=== PATIENT | male | born 1950 | race Caucasian/White ===

== ENCOUNTER 2020-11-19 17:10 | Inpatient (IN) | payer BC ==
[~2020-11-19] VITALS: Ht 175.3 cm; Wt 86.2 kg
--- NOTE | 2020-11-19 17:10 | NUR ---
PT BIB SELF C/O SOBAND COUGHT +COVID 10 DAYS AGO. PT IS AAOX4, NOT IN RESPIRATORY DISTRESS, HOOKED TO MECHANICAL MAINTENANCE FOREMAN, KEPT RESTED AND COMFORTABLE. WILL CONTINUE TO MONITOR.
--- NOTE | 2020-11-19 17:24 | NUR ---
SEEN AND EXAMINED BY .
[2020-11-19] MEDS ORDERED: DEXAMETHASONE SOD PHOSPHATE 10 MG/ML VIAL ONE (17:27)
--- NOTE | 2020-11-19 17:28 | NUR ---
PHOTO TUBE ASSEMBLER AT BEDSIDE FOR XRAY.
[2020-11-19] MEDS ORDERED: DEXAMETHASONE SOD PHOSPHATE 10 MG/ML VIAL IV ONE (17:30)
[2020-11-19] MEDS ORDERED: ALBUTEROL FS 2.5 MG/3 ML VIAL.NEB CONTNEB ONE (17:30)
--- NOTE | 2020-11-19 17:35 | NUR ---
IV LINE ESTABLISHED BLOOD DRAWN AND SENT TO LAB.
--- NOTE | 2020-11-19 17:42 | NUR ---
RT AT BEDSIDE FOR BREATHING TX.
[2020-11-19] MEDS ORDERED: ALBUTEROL FS 2.5 MG/3 ML VIAL.NEB ONE ×2 (17:45→18:00)
[2020-11-19 17:57] LABS: BASOPHILS % (AUTO) 0.5 % (0.0-2.0); EOSINOPHILS % (AUTO) 0.2 % (0.0-6.0); HEMATOCRIT 45 % (39-51); LYMPHOCYTES # (AUTO) 0.6 /CMM (0.8-4.8); LYMPHOCYTES % (AUTO) 18.7 % (20.0-44.0); MEAN CORPUSCULAR HGB CONC 34 g/dl (31.0-36.0); MEAN CORPUSCULAR VOLUME 86 fL (80-96); MONOCYTES # (AUTO) 0.2 /CMM (0.1-1.30); MONOCYTES % (AUTO) 6.7 % (2.0-12.0); NEUTROPHILS # (AUTO) 2.2 /CMM (1.8-8.9); NEUTROPHILS % (AUTO) 73.9 % (43.0-81.0); RED BLOOD CELL COUNT(AUTO) 5.18 MIL/uL (4.5-6.0)
[2020-11-19] MEDS ORDERED: ACET325T53 PO (18:10)
[2020-11-19 18:18] LABS: CALCIUM, SERUM 8.3 mg/dL (8.5-10.1); CARBON DIOXIDE 25 mmol/L (21-32); CHLORIDE 102 mmol/L (98-107); CREATININE 1.3 mg/dL (0.6-1.3); GLUCOSE 131 mg/dL (74-106); SODIUM SERUM 137 mmol/L (136-145); UREA NITROGEN, BLOOD 18 mg/dL (7-18)
[2020-11-19 19:27] LABS: BAND % (MANUAL) 20 % (0.0-5.0); LYMPHOCYTES % (MANUAL) 15 % (16-48); MONOCYTES % (MANUAL) 5 % (0-11.0); NEUTROPHILS % (MANUAL) 60 (42-76)
--- NOTE | 2020-11-19 19:54 | NUR ---
DR. BUCHANAN SPEAKING WITH DR. ZAINA BANUELOS REGARDING ADMISSION
[2020-11-19 21:15] LABS: ALANINE AMINOTRANSFERASE < 6 U/L (12-78); ALBUMIN 3.1 g/dL (3.4-5.0); ALKALINE PHOSPHATASE 63 U/L (46-116); ASPARTATE AMINOTRANSFERASE 58 U/L (15-37); BILIRUBIN,TOTAL 0.5 mg/dL (0.2-1.0); FERRITIN 574 ng/mL (8-388); TOTAL PROTEIN, SERUM 7.6 g/dL (6.4-8.2)
[2020-11-19] MEDS ORDERED: ZOLPIDEM TARTRATE 5 MG TABLET PO PRN (22:00)
[2020-11-19] MEDS ORDERED: ONDANSETRON HCL/PF 4 MG/2 ML VIAL IVP PRN (22:00)
[2020-11-19] MEDS ORDERED: ENOXAPARIN SODIUM 40 MG/0.4 ML DISP.SYRIN SQ SCH ×2 (22:00→23:30)
[2020-11-19] MEDS ORDERED: HYDROCODONE/APAP 5/325MG TABLET PO PRN (22:00)
[2020-11-19] MEDS ORDERED: ALBUTEROL SULFATE INH 18 GM HFA.AER.AD IH PRN (22:00)
[2020-11-19] MEDS ORDERED: ACETAMINOPHEN 325 MG TABLET PO PRN (22:00)
[2020-11-19 22:21] LABS: B-TYPE NATRIURETIC PEPTIDE < 5 PG/ML (0-125)
[2020-11-19 22:25] LABS: C-REACTIVE PROTEIN 13.6 mg/dL (0.0-0.9); CREATINE KINASE, TOTAL 57 U/L (39-308)
[2020-11-19 22:54] LABS: PLATELET COUNT (AUTO) 63 /CMM (150-450)
--- NOTE | 2020-11-19 23:14 | NUR ---
on-call pharmacy called to clarify lovenox order, not recommended for platelets <100, platelets 63. Dr. You made aware. per Dr. you, D/c lovenox
[2020-11-20] MEDS ORDERED: AZITHROMYCIN 500 MG VIAL ONE (00:06)
[2020-11-20] MEDS: AZITHROMYCIN 500 MG in IV D5W 250 ML IV SCH ×2 (00:09→21:55)
--- NOTE | 2020-11-20 00:17 | NUR ---
BED ASSIGNMENT 209-1
--- NOTE | 2020-11-20 01:20 | NUR ---
REPORT GIVEN TO MARIA DEL CARMEN DAVIS FOR SETH PT WILL BE TRANSPORTED TO 2ND FLOOR
[2020-11-20 03:00] VITALS: BP 121/75
--- NOTE | 2020-11-20 03:00 | NUR ---
in store marketing associateherb digger notes Received Pt from ER nurse Manuel, RN and EMT. Pt arrived at the unit with a gurney and ACLS protocol. Pt is alert and orientedX4. Pt speaks Romanian and able to make needs known. Respiration is on 2 L NC. No SOB. No S/S of distress noted. VS is stable. afebrile. Tele monitor showed SR Hr at 73 bpm. IV site at RAC# 18 is clean, intact and infusing well abx azithromycin from ER. Pt is able to ambulate with a steady gait. Skin assessment is done and performed. Pt's skin is intact. Pt's belonging was checked by KEVIN Chris and signed by Pt. Admission orders is received from Dr. Mccartney. Reorient Pt to the room and the use of call light. Pt verbalize understanding. Safety precautions is maintained. Bed at low position, brakes locked, side rails upX2 and call light is within reach. Will continue to monitor.
--- NOTE | 2020-11-20 03:25 | NUR ---
anime artist notes Informed Dr. Mccartney regarding Pt's diet. MD order cardiac diet. Order carried out.
[2020-11-20 04:00] VITALS: BP 115/71
--- NOTE | 2020-11-20 06:22 | NUR ---
heel brusher notes Pt's complaining of cough. MD order Robitussin DM 10 ml/Q6/prn. Order carried out.
[2020-11-20] MEDS: GUAIFENESIN/D-METHORPHAN HB 5 ML UDC PO PRN ×2 (06:30→14:10)
--- NOTE | 2020-11-20 06:30 | NUR ---
grain operations manager notes Pt's complaining of cough and requesting cough meds. Administered robitussin DM 10ml/po/prn as ordered for cough per Pt's request. Safety precautions is maintained. Will continue to monitor.
--- NOTE | 2020-11-20 06:50 | NUR ---
wing mailer machine operator closing notes Pt is resting in bed comfortably. Pt is alert and orientedX4. Respiration is on 2 L NC with 02 sat is 94%. No SOB. No S/S of distress noted. IV site at RAC# 18 is clean, intact, flushes well and SL. Tele monitor showed SR with BBB hr 81 bpm. Vs is stable. Afebrile. Kept Pt clean, dry and comfortable. All needs met and attended. Safety precautions is maintained. Bed at low position, brakes locked, hob elevated, urinal at the bedside, side rails upX2 and call light is within reach. Will endorse to morning nurse for SETH.
[2020-11-20 07:31] LABS: BASOPHILS % (AUTO) 0.3 % (0.0-2.0); HEMATOCRIT 45 % (39-51); HEMOGLOBIN 14.7 g/dL (13.5-17.5); LYMPHOCYTES # (AUTO) 0.2 /CMM (0.8-4.8); LYMPHOCYTES % (AUTO) 14.1 % (20.0-44.0); MEAN CORPUSCULAR HGB CONC 33 g/dl (31.0-36.0); MEAN CORPUSCULAR VOLUME 86 fL (80-96); MONOCYTES # (AUTO) 0.1 /CMM (0.1-1.30); MONOCYTES % (AUTO) 7.2 % (2.0-12.0); NEUTROPHILS # (AUTO) 1.4 /CMM (1.8-8.9); NEUTROPHILS % (AUTO) 78.4 % (43.0-81.0); PLATELET COUNT (AUTO) 64 /CMM (150-450); RED BLOOD CELL COUNT(AUTO) 5.17 MIL/uL (4.5-6.0)
--- NOTE | 2020-11-20 07:40 | NUR ---
TELE/RN OPENING NOTES RECEIVED PATIENT ON BED. PATIENT IS ON 2 L OXYGEN VIA NASAL CANNULA. PATIENT IN NO APPARENT RESPIRATORY DISTRESS NOTED. NO SIGN AND SYMPTOM OF PAIN NOTED AT THIS TIME. TELE MONITOR READING SINUS RHYTHM 76 BPM WITH BBB. WILL CONTINUE TO MONITOR.
[2020-11-20 07:52] LABS: CHOLESTEROL 189 mg/dL (<200); HDL CHOLESTEROL 25 mg/dL (40-60); LDL 140 mg/dL (0-99); TRIGLYCERIDES 118 mg/dL (30-150)
[2020-11-20] MEDS: PANTOPRAZOLE 40 MG TABLET.DR PO SCH (07:52)
[2020-11-20 07:53] LABS: ALANINE AMINOTRANSFERASE 53 U/L (12-78); ALBUMIN 2.8 g/dL (3.4-5.0); ALKALINE PHOSPHATASE 59 U/L (46-116); ASPARTATE AMINOTRANSFERASE 56 U/L (15-37); BILIRUBIN,TOTAL 0.5 mg/dL (0.2-1.0); CALCIUM, SERUM 8.5 mg/dL (8.5-10.1); CARBON DIOXIDE 22 mmol/L (21-32); CHLORIDE 102 mmol/L (98-107); CREATININE 1.2 mg/dL (0.6-1.3); GLUCOSE 186 mg/dL (74-106); MAGNESIUM 2.1 mg/dL (1.8-2.4); PHOSPHORUS 2.4 mg/dL (2.5-4.9); POTASSIUM 4.5 mmol/L (3.5-5.1); SODIUM SERUM 135 mmol/L (136-145); TOTAL PROTEIN, SERUM 7.2 g/dL (6.4-8.2); UREA NITROGEN, BLOOD 19 mg/dL (7-18)
[2020-11-20 07:56] LABS: WHITE BLOOD COUNT (AUTO) 1.7 K/uL (4.3-11.0)
--- NOTE | 2020-11-20 08:00 | NUR ---
TELE/RN NOTES PATIENT SATURATION 78-83. PLACE TO 6 L OXYGEN VIA NASAL CANNULA SATURATION 80-83. CHANGE TO FACE MASK 10L OXYGEN SATURATION 80-81. CHANGE TO 15L OXYGEN VIA NON REBREATHER MASK SATURATION 90-94. PATIENT IN APPARENT RESPIRATORY DISTRESS NOTED. MD IS AWARE. WILL CONTINUE TO MONITOR.
[2020-11-20] MEDS ORDERED: NEUTRA PHOS 1 POWD.PACKET PO ONE (09:00)
[2020-11-20] MEDS: DEXAMETHASONE SOD PHOSPHATE 10 MG/ML VIAL IV SCH (09:09)
[2020-11-20] MEDS: DOCUSATE SODIUM 100 MG CAPSULE PO SCH ×2 (09:10→17:28)
[2020-11-20 12:12] LABS: BAND % (MANUAL) 1 % (0.0-5.0); LYMPHOCYTES % (MANUAL) 10 % (16-48); MONOCYTES % (MANUAL) 7 % (0-11.0); NEUTROPHILS % (MANUAL) 82 (42-76)
[2020-11-20 19:31] VITALS: BP 142/82
--- NOTE | 2020-11-20 19:33 | NUR ---
TELE/RN CLOSING NOTES PATIENT IS ON BED. ALERT AND ORIENTED X4. PATIENT IS ON HIGH FLOW 60L OXYGEN FIO2 75% SATURATION 94%. PATIENT IN NO APPARENT RESPIRATORY DISTRESS. NO COMPLAINED OF PAIN NOTED AT THIS TIME. TELE MONITOR READING SINUS RHYTHM 73 BPM WITH BBB. SEEN AND EXAMINED BY MD WITH ORDERS MADE AND CARRIED OUT. ALL DUE MEDICATIONS WAS GIVE. SAFETY PRECAUTIONS WAS IN PLACED. BED IN LOWEST POSITION AND LOCKED. SIDE RAILS UP X2. CALL LIGHT WITHIN REACH. WILL ENDORSED TO GREENSTONE POLISHER OPERATOR FOR SETH.
--- NOTE | 2020-11-20 19:35 | NUR ---
TELE/RN OPENING NOTES RECEIVED PATIENT IN BED RESTING. PATIENT IS ALERT AND ORIENTED X 3. PATIENT BREATHING IS EVEN AND UNLABORED. NO SIGNS OF RESPIRATORY DISTRESS NOTED. PATIENT IN NO SIGNS OF DISTRESS. PATIENT HAS IV ACCESS ON RIGHT AC #18G SL. SAFETY MEASURES ARE IN PLACED, BED IS LOCKED AND PLACED IN THE LOWEST POSITION, SIDE RAILS UP X 2, CALL LIGHT WITHIN REACH. WILL CONTINUE TO MONITOR THROUGH OUT SHIFT.
[2020-11-20 20:00] VITALS: BP 131/81
[2020-11-20] MEDS: ATORVASTATIN 10 MG TABLET PO SCH (21:55)
[2020-11-21] VITALS: BP 133/87
[2020-11-21 04:00] VITALS: BP 123/78
[2020-11-21 06:23] LABS: BASOPHILS % (AUTO) 0.1 % (0.0-2.0); HEMATOCRIT 43 % (39-51); HEMOGLOBIN 14.2 g/dL (13.5-17.5); LYMPHOCYTES # (AUTO) 0.4 /CMM (0.8-4.8); LYMPHOCYTES % (AUTO) 5.6 % (20.0-44.0); MEAN CORPUSCULAR HGB CONC 33 g/dl (31.0-36.0); MEAN CORPUSCULAR VOLUME 86 fL (80-96); MONOCYTES # (AUTO) 0.5 /CMM (0.1-1.30); MONOCYTES % (AUTO) 6.4 % (2.0-12.0); NEUTROPHILS # (AUTO) 6.3 /CMM (1.8-8.9); NEUTROPHILS % (AUTO) 87.9 % (43.0-81.0); PLATELET COUNT (AUTO) 93 /CMM (150-450); RED BLOOD CELL COUNT(AUTO) 4.98 MIL/uL (4.5-6.0); WHITE BLOOD COUNT (AUTO) 7.1 K/uL (4.3-11.0)
--- NOTE | 2020-11-21 06:35 | NUR ---
TELE/RN CLOSING NOTES PATIENT IN BED RESTING. PATIENT IS ALERT AND ORIENTED X 3. PATIENT BREATHING IS EVEN AND UNLABORED. NO SIGNS OF RESPIRATORY DISTRESS NOTED. PATIENT IN NO SIGNS OF DISTRESS.TELE READING SR 66. PATIENT HAS IV ACCESS ON RIGHT AC #18G SL. ALL NEEDS HAVE BEEN MET DURING SHIFT. SAFETY MEASURES ARE IN PLACED, BED IS LOCKED AND PLACED IN THE LOWEST POSITION, SIDE RAILS UP X 2, CALL LIGHT WITHIN REACH. WILL CONTINUE TO MONITOR THROUGH OUT SHIFT.
[2020-11-21 07:10] LABS: CALCIUM, SERUM 8.7 mg/dL (8.5-10.1); CREATININE 1.2 mg/dL (0.6-1.3); PHOSPHORUS 3.5 mg/dL (2.5-4.9); POTASSIUM 4.6 mmol/L (3.5-5.1)
--- NOTE | 2020-11-21 07:31 | NUR ---
GRADES 9 THRU 12 VISITING TEACHER OPENING NOTES RECEIVED PATIENT IN BED, AWAKE, A/O X4. PATIENT ON NON-REBREATHER MASK; BREATHING EVEN AND UNLABORED AT THIS TIME. NO SOB NOTED. TELE MONITOR WITH A CURRENT READING OF SR WITH BBB 63. NO COMPLAINS OF PAIN. RAC IV ACCESS G # 18 PRESENT AND INTACT. SAFETY PRECAUTIONS IN PLACE; BED IN LOW POSITION AND LOCKED, RAILS UP X2, CALL LIGHT WITHIN REACH. WILL CONTINUE TO MONITOR PATIENT.
[2020-11-21 08:00] VITALS: BP 115/75
[2020-11-21] MEDS: DOCUSATE SODIUM 100 MG CAPSULE PO SCH ×2 (08:02→16:03)
[2020-11-21] MEDS: PANTOPRAZOLE 40 MG TABLET.DR PO SCH (08:02)
[2020-11-21] MEDS: DEXAMETHASONE SOD PHOSPHATE 10 MG/ML VIAL IV SCH (08:03)
[2020-11-21 12:00] VITALS: BP 131/81
[2020-11-21 16:00] VITALS: BP 121/74
--- NOTE | 2020-11-21 18:55 | NUR ---
HEALTHCARE APPLICATIONS ANALYST CLOSING NOTES PATIENT REMAINS IN BED, AWAKE, A/O X4. PATIENT ON NON-REBREATHER MASK; BREATHING EVEN AND UNLABORED DURING THE SHIFT. NO SOB NOTED. TELE MONITOR WITH A CURRENT READING OF SR. NO COMPLAINS OF PAIN DURING THE DAY. RAC IV ACCESS G # 18 PRESENT AND INTACT. ALL NEEDS ATTENDED THROUGHOUT THE DAY. SAFETY PRECAUTIONS IN PLACE; BED IN LOW POSITION AND LOCKED, RAILS UP X2, CALL LIGHT WITHIN REACH. WILL ENDORSE TO DATA STORAGE SPECIALIST NURSE.
[2020-11-21 20:00] VITALS: BP 138/80
[2020-11-21] MEDS: ATORVASTATIN 10 MG TABLET PO SCH (21:56)
[2020-11-21] MEDS: AZITHROMYCIN 500 MG in IV D5W 250 ML IV SCH (21:56)
--- NOTE | 2020-11-21 22:22 | NUR ---
ALARM INSTALLATION TECHNICIAN OPENING NOTES PT RECEIVED AT BEDSIDE. ALERT AND ORIENTED X4. CALM AND COOPERATIVE. PRIMARY LANGUAGE IS VIETNAMESE/ ANDORRAN, UNDERSTANDS BASIC [place]. UNDERSTANDS BASIC COMMANDS. PT IS SINUS RHYTHM. PATIENT ON NONREBREATHER MAS 15L. TOLERATING WELL. OXYGEN SATURATION 97% VIA PULSE OX MONITOR. VITAL SIGNS: 138/80, PULSE 83, RESP 20, TEMP. 98. RAC #18. INTACT, PATENT, FLUSHING WELL. NO OCCLUSIONS, NO INFILTRATIONS NOTED. WILL CONTINUE TO MONITOR. WILL CONTINUE PLAN OF CARE.
[2020-11-22] VITALS: BP 129/83
[2020-11-22 05:06] VITALS: BP 133/71
--- NOTE | 2020-11-22 06:33 | NUR ---
FULLERETTE CLOSING NOTES PT LAYING IN BED. CALM, COOPERATIVE. ALERT AND ORIENTED X4. PRIMARY LANGUAGE IS LIBYAN/ FILIPINO. UNDERSTANDS BASIC COMMANDS. NO SIGNIFICANT CHANGES. PT ON NONREBREATHER MASK 15L. TOLERATING WELL. OXYGEN SATURATION 93%. NO SOB. PT COUGHS INTERMITTENTLY. DENIES DIFFICULTY BREATHING. PT COMPLIANT WITH MEDICATIONS. RAC #18 PATENT, INTACT, FLUSHING WELL. NO OCCLUSIONS, NO INFILTRATION. VITAL SIGNS: 135/ 71, PULSE 73, RESP. 18, TEMPERATURE 96.3. NO FEVER NOTED. WILL ENDORSE TO ONCOMING SHIFT. WILL CONTINUE PLAN OF CARE.
[2020-11-22 07:04] LABS: HEMATOCRIT 41 % (39-51); HEMOGLOBIN 13.5 g/dL (13.5-17.5); LYMPHOCYTES # (AUTO) 0.4 /CMM (0.8-4.8); LYMPHOCYTES % (AUTO) 5.7 % (20.0-44.0); MEAN CORPUSCULAR HGB CONC 33 g/dl (31.0-36.0); MEAN CORPUSCULAR VOLUME 86 fL (80-96); MONOCYTES # (AUTO) 0.5 /CMM (0.1-1.30); NEUTROPHILS # (AUTO) 5.7 /CMM (1.8-8.9); NEUTROPHILS % (AUTO) 87.3 % (43.0-81.0); PLATELET COUNT (AUTO) 117 /CMM (150-450); RED BLOOD CELL COUNT(AUTO) 4.74 MIL/uL (4.5-6.0); WHITE BLOOD COUNT (AUTO) 6.5 K/uL (4.3-11.0)
--- NOTE | 2020-11-22 07:30 | NUR ---
LIFE CARE PLANNER OPENING NOTE RECEIVED PATIENT RESTING IN BED. ALERT AND ORIENTED X 2. CONTINUES ON O2 3L VIA NC WITH NO S/S RESPIRATORY DISTRESS NOTED. NO S/S PAIN NOTED. IV ACCESS TO RIGHT HAND INTACT AND PATENT. CALL LIGHT WITHIN REACH. ASPIRATION, FALL AND SAFETY PRECAUTIONS MAINTAINED. WILL CONTINUE TO MONITOR. Addendum: 11/22/20 at 0733 by MORTEZA GANDHI RN ALERT AND ORIENTED X 4. CONTINUES ON O2 15L VIA MASK WITH NO S/S RESPIRATORY DISTRESS NOTED. IV ACCESS TO RIGHT AC INTACT AND PATENT.
[2020-11-22 07:50] LABS: CALCIUM, SERUM 8.5 mg/dL (8.5-10.1); CREATININE 1.2 mg/dL (0.6-1.3); POTASSIUM 4.3 mmol/L (3.5-5.1)
[2020-11-22 08:00] VITALS: BP 125/62
[2020-11-22] MEDS: DOCUSATE SODIUM 100 MG CAPSULE PO SCH ×2 (08:58→16:46)
[2020-11-22] MEDS: PANTOPRAZOLE 40 MG TABLET.DR PO SCH (08:58)
[2020-11-22] MEDS: DEXAMETHASONE SOD PHOSPHATE 10 MG/ML VIAL IV SCH (08:58)
[2020-11-22 12:00] VITALS: BP 145/88
[2020-11-22 16:00] VITALS: BP 128/68
[2020-11-22] MEDS: APIXABAN 5 MG TABLET PO SCH (16:47)
[2020-11-22] MEDS ORDERED: REMDESIVIR (CHARGED) 200 MG, *LOADING DOSE 1 EA in IV NS 0.9% 210 ML IV ONE (17:00)
--- NOTE | 2020-11-22 18:06 | NUR ---
MIDDLE SCHOOL PRINCIPAL CLOSING NOTE PATIENT IS CURRENTLY SITTING UP IN BED. AWAKE, ALERT AND ORIENTED X 4. ABLE TO MAKE NEEDS KNOWN. NO COMPLAINTS OF PAIN THIS SHIFT. TELE MONITOR SHOWING SINUS RHYTHM. IV ACCESS TO RIGHT AC INTACT AND PATENT. STARTED ON IV REMDESIVIR WITH NO S/S COMPLICATIONS NOTED. CONTINUES ON O2 15L NON REBREATHER WITH NO S/S RESPIRATORY DISTRESS NOTED. VITALS SIGNS: BP 128/68 HR 71 RR 19 T 96.8 O2 SAT 95%. CALL LIGHT WITHIN REACH. ASPIRATION, FALL AND SAFETY PRECAUTIONS MAINTAINED. WILL ENDORSE PLAN OF CARE TO NEXT SHIFT.
--- NOTE | 2020-11-22 19:30 | NUR ---
WAD COMPRESSOR OPERATOR ADJUSTER OPENING NOTE RECEIVED PATIENT IN BED. A/OX4. DANISH SPEAKIN, ABLE TOP MAKE BASIC NEEDS KNOWN. ON OXYGEN 15L NONREBREATHER. RESPIRATIONS ARE EVEN AND UNLABORED. NO S/S SOB NOTED. NO C/O PAIN AT THIS TIME. EXTERNAL TELE MONITOR READS SINUS RHYTHM WITH BBB WITH HR 69. IN NO APPARENT DISTRESS. IV ACCESS IN RAC#18 PATENT AND SALINE LOCKED. BED IS LOW AND LOCKED, HOB ELEVATED IN SEMI FOWLERS, SIDE RIALS UP X3, CALL LIGHT WITHIN REACH. WILL CONTINUE TO MONITOR THROUGHOUT SHIFT.
[2020-11-22 20:00] VITALS: BP 126/82
--- NOTE | 2020-11-22 20:45 | NUR ---
CIVIL DIVISION DEPUTY SHERIFF NOTE SPOKE WITH PATIENTS FAMILY, VIRY, DAUGHTER AT [phone]. FAMILY SAID OK TO GIVE INFORMATION TO FAMILY D/T NOT ON FACE SHEET. UPDATED FAMILY WITH LABS AND CHEST XRAY WELL WHAT IS ORDERED FOR TOMORROW.
[2020-11-22] MEDS: AZITHROMYCIN 500 MG in IV D5W 250 ML IV SCH (22:19)
[2020-11-22] MEDS: ATORVASTATIN 10 MG TABLET PO SCH (22:19)
[2020-11-23] VITALS: BP 125/83
[2020-11-23 06:08] VITALS: BP 128/75
--- NOTE | 2020-11-23 06:25 | NUR ---
CERAMIC RESTORER CLOSING NOTE PATIENT RESTING IN BED. A/OX4.REMAINS ON OXYGEN 15L NONREBREATHER. NO RESP DISTRESS. NO S/S PAIN. EXTERNAL TELE MONITOR READS SINUS RHYTHM WITH BB. NO DISTRESS. IV ACCESS MAINTAINED IN RAC#18. BED REMAINS LOW AND LOCKED, HOB ELEVATED IN SEMI FOWLERS, SIDE RIALS UP X3, CALL LIGHT WITHIN REACH. WILL ENDORSE TO NEXT SHIFT.
--- NOTE | 2020-11-23 07:30 | NUR ---
PT RECEIVED RESTING COMFORTABLY IN BED. NO S/S OR C/O PAIN OR DISTRESS NOTED. SIDE RAILS UP X2, CALL LIGHT LEFT WITHIN REACH. WILL CONTINUE PLAN OF CARE.
[2020-11-23 07:34] LABS: ALBUMIN 2.7 g/dL (3.4-5.0); BILIRUBIN,DIRECT 0.2 mg/dL (0.0-0.2); BILIRUBIN,TOTAL 0.8 mg/dL (0.2-1.0); CALCIUM, SERUM 8.4 mg/dL (8.5-10.1); POTASSIUM 4.2 mmol/L (3.5-5.1); TOTAL PROTEIN, SERUM 7.1 g/dL (6.4-8.2)
[2020-11-23] MEDS: DOCUSATE SODIUM 100 MG CAPSULE PO SCH ×2 (08:48→17:01)
[2020-11-23] MEDS: DEXAMETHASONE SOD PHOSPHATE 10 MG/ML VIAL IV SCH (08:48)
[2020-11-23] MEDS: PANTOPRAZOLE 40 MG TABLET.DR PO SCH (08:48)
[2020-11-23] MEDS: APIXABAN 5 MG TABLET PO SCH ×2 (08:49→17:06)
[2020-11-23] MEDS ORDERED: REMDESIVIR (CHARGED) 100 MG in IV NS 0.9% 230 ML IV SCH (16:00)
[2020-11-23] MEDS: REMDESIVIR (CHARGED) 100 MG in IV NS 0.9% 100 ML IV SCH (17:01)
--- NOTE | 2020-11-23 19:30 | NUR ---
CHANGE OF SHIFT REPORT PT RESTING COMFORTABLY IN BED. NO S/S OR C/O PAIN OR DISTRESS NOTED. SIDE RAILS UP X2, CALL LIGHT LEFT WITHIN REACH. PT KEPT CLEAN, DRY, AND COMFORTABLE. NO SIGNIFICANT CHANGES SINCE PREVIOUS SHIFT. REPORT GIVEN TO BETTY JOYCE.
[2020-11-23 20:00] VITALS: BP 135/84
[2020-11-24] VITALS: BP 137/83
[2020-11-24] MEDS: ATORVASTATIN 10 MG TABLET PO SCH ×2 (00:40→21:55)
--- NOTE | 2020-11-24 01:15 | NUR ---
MS2/RN DURING INITIAL SHIFT ROUNDING, PATIENT WAS ON BED AWAKE, ALERT, ORIENTED, COMFORTABLE, NO C/O PAIN, NO DISTRESS NOTED, CALL LIGHT IN REACH. PRESENTLY, PATIENT IS SLEEPING, APPEAR COMFORTABLE, NO DISTRESS NOTED, CALL LIGHT IN REACH. WILL MONITOR.
[2020-11-24 04:00] VITALS: BP 130/79
[2020-11-24 06:35] LABS: BASOPHILS % (AUTO) 0.1 % (0.0-2.0); EOSINOPHILS % (AUTO) 0.3 % (0.0-6.0); HEMATOCRIT 43 % (39-51); HEMOGLOBIN 14.4 g/dL (13.5-17.5); LYMPHOCYTES # (AUTO) 0.5 /CMM (0.8-4.8); LYMPHOCYTES % (AUTO) 6.9 % (20.0-44.0); MEAN CORPUSCULAR HGB CONC 34 g/dl (31.0-36.0); MEAN CORPUSCULAR VOLUME 86 fL (80-96); MONOCYTES # (AUTO) 0.5 /CMM (0.1-1.30); MONOCYTES % (AUTO) 7.3 % (2.0-12.0); NEUTROPHILS # (AUTO) 5.8 /CMM (1.8-8.9); NEUTROPHILS % (AUTO) 85.4 % (43.0-81.0); PLATELET COUNT (AUTO) 150 /CMM (150-450); RED BLOOD CELL COUNT(AUTO) 5.01 MIL/uL (4.5-6.0); WHITE BLOOD COUNT (AUTO) 6.7 K/uL (4.3-11.0)
[2020-11-24 07:07] LABS: ALBUMIN 2.7 g/dL (3.4-5.0); BILIRUBIN,DIRECT 0.2 mg/dL (0.0-0.2); BILIRUBIN,TOTAL 0.8 mg/dL (0.2-1.0); CALCIUM, SERUM 8.6 mg/dL (8.5-10.1); CREATININE 1.1 mg/dL (0.6-1.3)
--- NOTE | 2020-11-24 07:09 | NUR ---
MS2/RN PATIENT IS STILL SLEEPING, APPEAR COMFORTABLE, NO DISTRESS NOTED, CALL LIGHT IN REACH, ALL NEEDS ATTENDED AT THIS TIME, WILL CONTINUE TO MONITOR.
[2020-11-24 08:00] VITALS: BP 136/79
--- NOTE | 2020-11-24 08:00 | NUR ---
NATIONAL VAN TRUCK DRIVER OPENING NOTE RECEIVED PATIENT IN BED. A/OX4. CHINESE SPEAKING, ABLE TOP MAKE BASIC NEEDS KNOWN. ON OXYGEN 15L NONREBREATHER.O2 SAT 90%. RESPIRATIONS ARE EVEN AND UNLABORED. NO S/S SOB NOTED. NO C/O PAIN AT THIS TIME. EXTERNAL TELE MONITOR READS SINUS RHYTHM WITH BBB WITH HR 69. IN NO APPARENT DISTRESS. IV ACCESS IN RAC#18 PATENT AND SALINE LOCKED. BED IS LOW AND LOCKED, HOB ELEVATED IN SEMI FOWLERS, SIDE RAILS UP X3, CALL LIGHT WITHIN REACH. WILL CONTINUE TO MONITOR
[2020-11-24] MEDS: PANTOPRAZOLE 40 MG TABLET.DR PO SCH (09:47)
[2020-11-24] MEDS: DOCUSATE SODIUM 100 MG CAPSULE PO SCH ×2 (09:47→17:13)
[2020-11-24] MEDS: DEXAMETHASONE SOD PHOSPHATE 10 MG/ML VIAL IV SCH (09:47)
[2020-11-24] MEDS: APIXABAN 5 MG TABLET PO SCH ×2 (09:50→17:17)
[2020-11-24 12:00] VITALS: BP 123/78
--- NOTE | 2020-11-24 12:00 | NUR ---
TRIED TO TITRATE PT'S O2 NON REBREATHER MASK OF 15LITERS TO 13 LITERS NRB MASK.O2 SAT 90% AND TOLERATING IT.DENIES DISTRESS/SOB/DISCOMFORT.
--- NOTE | 2020-11-24 13:06 | NUR ---
PT DESATURATES TO 80-82 %WHEN DOING BREATHING EXERCISES WITH COUGHING AND WHEN ATTEMPTED TO TITRATE O2 NRB MASK TO 13LITERS/MIN. PT SAT ON THE EDGE OF THE BED AND ENCOURAGED TO DO DEEP BREATHING EXERCISES AND DO PRONE OR SIDE POSITION WHEN IN BED.
[2020-11-24 16:00] VITALS: BP 101/65
[2020-11-24] MEDS: REMDESIVIR (CHARGED) 100 MG in IV NS 0.9% 100 ML IV SCH (17:13)
--- NOTE | 2020-11-24 19:20 | NUR ---
remote sensing research scientist opening notes Received Pt in bed awake. Pt is alert and orientedX4. Pt speaks Taiwanese and able to make needs known. Respiration on nonrebreather mask 15L. No SOB. No S/S of distress noted. Tele monitor showed SR with BBB hr at 78 bpm. IV site at RAC# 18 is clean, intact and flushes well. Safety precautions is maintained. Bed at low position, brakes locked, side rails upX2, urinal at the bedside, hob elevated and call light is within reach. Will continue to monitor.
[2020-11-24 20:00] VITALS: BP 125/84
[2020-11-24] MEDS: GUAIFENESIN/D-METHORPHAN HB 5 ML UDC PO PRN (23:10)
--- NOTE | 2020-11-24 23:13 | NUR ---
accounts collector notes Pt's complaining of dry cough and requesting meds. Administered Robitussin DM 5ml/2 dose cups/prn/po as ordered for cough. Safety precautions is maintained. Will continue to monitor.
[2020-11-25] VITALS: BP 130/80
[2020-11-25 04:00] VITALS: BP 132/70
--- NOTE | 2020-11-25 07:00 | NUR ---
durability engineer closing notes Pt is resting in bed comfortably. Pt is alert and orientedX4. Pt speaks French and able to make needs known. Respiration on nonrebreather mask 15L. No SOB. No S/S of distress noted. Tele monitor showed SR with BBB hr at 66 bpm. IV site at RAC# 18 is clean, intact and flushes well. Routine meds were given as ordered. Kept Pt clean, dry and comfortable. Safety precautions is maintained. Bed at low position, brakes locked, side rails upX2, urinal at the bedside, hob elevated and call light is within reach. Will endorse to morning nurse for SETH.
--- NOTE | 2020-11-25 07:36 | NUR ---
MANAGER RETAIL SALES OPENING NOTES RECEIVED PATIENT IN BED, AWAKE, A/O X4. PATIENT ON NON-REBREATHER MASK; BREATHING EVEN AND UNLABORED AT THIS TIME. NO SOB NOTED. NO COMPLAINS OF PAIN. RAC IV ACCESS G # 18 PRESENT AND INTACT. SAFETY PRECAUTIONS IN PLACE; BED IN LOW POSITION AND LOCKED, RAILS UP X2, CALL LIGHT WITHIN REACH. WILL CONTINUE TO MONITOR PATIENT.
[2020-11-25 08:00] VITALS: BP 117/70
[2020-11-25] MEDS: APIXABAN 5 MG TABLET PO SCH ×2 (08:12→16:17)
[2020-11-25] MEDS: PANTOPRAZOLE 40 MG TABLET.DR PO SCH (08:12)
[2020-11-25] MEDS: DOCUSATE SODIUM 100 MG CAPSULE PO SCH ×2 (08:12→16:16)
[2020-11-25] MEDS: DEXAMETHASONE SOD PHOSPHATE 10 MG/ML VIAL IV SCH (08:14)
[2020-11-25 08:22] LABS: ALBUMIN 2.6 g/dL (3.4-5.0); BILIRUBIN,DIRECT 0.3 mg/dL (0.0-0.2); BILIRUBIN,TOTAL 0.9 mg/dL (0.2-1.0); CALCIUM, SERUM 8.6 mg/dL (8.5-10.1); POTASSIUM 4.2 mmol/L (3.5-5.1); TOTAL PROTEIN, SERUM 6.9 g/dL (6.4-8.2)
[2020-11-25 12:00] VITALS: BP 122/70
[2020-11-25 16:00] VITALS: BP 127/74
[2020-11-25] MEDS: REMDESIVIR (CHARGED) 100 MG in IV NS 0.9% 100 ML IV SCH (16:16)
--- NOTE | 2020-11-25 19:00 | NUR ---
RECEIVING NOTES: ALERT AND ORIENTATED TO THE SITUATION REVIEWED THE CALL LIGHT SYSTEM WITH HIM NONREBREATHER 15 LITERS SAT 96%
--- NOTE | 2020-11-25 19:43 | NUR ---
PROCESS DEVELOPMENT ENGINEER CLOSING NOTES PATIENT REMAINS IN BED, AWAKE, A/O X4. PATIENT ON NON-REBREATHER MASK; BREATHING EVEN AND UNLABORED DURING THE SHIFT. NO SOB NOTED. NO COMPLAINS OF PAIN. RAC IV ACCESS G # 18 PRESENT AND INTACT. ALL NEEDS ATTENDED THROUGHOUT THE DAY. SAFETY PRECAUTIONS IN PLACE; BED IN LOW POSITION AND LOCKED, RAILS UP X2, CALL LIGHT WITHIN REACH. SETH ENDORSED TO NEON TUBE PUMPER NURSE.
[2020-11-25 20:00] VITALS: BP 126/83
[2020-11-25] MEDS: ATORVASTATIN 10 MG TABLET PO SCH (21:52)
[2020-11-26] VITALS (9 sets, daily range): BP systolic 110–128; BP diastolic 68–79
--- NOTE | 2020-11-26 05:57 | NUR ---
ENDING NOTES: ALERT AND ORIENTATED X4 SLEPT 8 HOURS THIS NIGHT USES THE URINAL AT THE BEDSIDE CALL LIGHT AT THE BEDSIDE WITHIN REACH RESP STATUS NONREBREATHE 15 LITERS SATS 93 - 95%
[2020-11-26 07:27] LABS: ALBUMIN 2.4 g/dL (3.4-5.0); BILIRUBIN,DIRECT 0.3 mg/dL (0.0-0.2); CALCIUM, SERUM 8.5 mg/dL (8.5-10.1); POTASSIUM 3.9 mmol/L (3.5-5.1); TOTAL PROTEIN, SERUM 6.7 g/dL (6.4-8.2)
--- NOTE | 2020-11-26 07:45 | NUR ---
RN OPENING NOTE Patient is resting in bed, A/O x4, showing no signs of acute distress or SOB, saturating 94% on 15.0L Non-rebreather mask. Patient denies any pain or discomfort at this time. Bed is in lowest position, side rails x2, in upright position, call light is within reach, fall safety and aspiration precautions enforced. Will continue with plan of care.
[2020-11-26] MEDS: DOCUSATE SODIUM 100 MG CAPSULE PO SCH ×2 (09:12→16:13)
[2020-11-26] MEDS: DEXAMETHASONE SOD PHOSPHATE 10 MG/ML VIAL IV SCH (09:12)
[2020-11-26] MEDS: APIXABAN 5 MG TABLET PO SCH ×2 (09:12→16:14)
[2020-11-26] MEDS: PANTOPRAZOLE 40 MG TABLET.DR PO SCH (09:12)
[2020-11-26] MEDS: REMDESIVIR (CHARGED) 100 MG in IV NS 0.9% 100 ML IV SCH (16:13)
--- NOTE | 2020-11-26 17:59 | NUR ---
RN CLOSING NOTE Patient is resting in bed, A/O x4, showing no signs of acute distress or SOB, saturating 94% on 15.0L Non-rebreather mask. Patient unable to tolerate when titrated down to 10-12L, desaturating to 88%. Kept on 15.0L. Patient denies any pain or discomfort at this time. All patient needs met, all due medications given, patient kept clean and dry throughout shift. Bed is in lowest position, side rails x2, in upright position, call light is within reach, fall safety and aspiration precautions enforced. Will endorse to boat canvas maker installer for SETH.
--- NOTE | 2020-11-26 19:45 | NUR ---
SHEET HEATER HELPER OPENING NOTES PATIENT IN BED A/O X4; ABLE TO MAKE NEEDS KNOWN. ON O2 AT 15LPM VIA NONREBREATHER MASK; TOLERATING WELL WITH NO SOB AT THIS TIME. ON EXTERNAL TELE MONITORING; READS SR WITH BBB AND HR AT 68. IV #18 ON RAC; PATENT AND INTACT. PATIENT DENIES PAIN OR DISCOMFORT AT THIS TIME. SAFETY MEASURES IN PLACE: BED IN LOWEST LOCK POSITION, SIDE RAILS UP X2, CALL LIGHT WITHIN REACH. WILL CONTINUE TO MONITOR.
[2020-11-26] MEDS: ATORVASTATIN 10 MG TABLET PO SCH (21:46)
[2020-11-27] VITALS (8 sets, daily range): BP systolic 115–134; BP diastolic 68–80
--- NOTE | 2020-11-27 06:12 | NUR ---
AUTOMAT WATCHER CLOSING NOTES PATIENT IN BED A/O X4; ABLE TO MAKE NEEDS KNOWN. ON O2 AT 15LPM VIA NONREBREATHER MASK; TOLERATING WELL WITH NO SOB AT THIS TIME. ON EXTERNAL TELE MONITORING; READS SR WITH BBB AND HR AT 68. IV #18 ON RAC; PATENT AND INTACT. SAFETY MEASURES IN PLACE: BED IN LOWEST LOCK POSITION, SIDE RAILS UP X2, CALL LIGHT WITHIN REACH. WILL ENDORSE SETH TO ONCOMING MORNING RN.
[2020-11-27] MEDS: PANTOPRAZOLE 40 MG TABLET.DR PO SCH (06:34)
--- NOTE | 2020-11-27 07:00 | NUR ---
RN OPENING NOTE Patient is resting in bed, A/O x4, showing no signs of acute distress or SOB, saturating 92% on 12.0L Non-rebreather mask. Patient denies any pain or discomfort at this time. Bed is in lowest position, side rails x2, in upright position, call light is within reach, fall safety and aspiration precautions enforced. Will continue with plan of care.
[2020-11-27 07:05] LABS: ALBUMIN 2.4 g/dL (3.4-5.0); BILIRUBIN,DIRECT 0.2 mg/dL (0.0-0.2); BILIRUBIN,TOTAL 0.7 mg/dL (0.2-1.0); TOTAL PROTEIN, SERUM 6.7 g/dL (6.4-8.2)
[2020-11-27 07:13] LABS: BASOPHILS % (AUTO) 0.1 % (0.0-2.0); EOSINOPHILS % (AUTO) 2.5 % (0.0-6.0); HEMATOCRIT 42 % (39-51); HEMOGLOBIN 14.1 g/dL (13.5-17.5); LYMPHOCYTES # (AUTO) 0.6 /CMM (0.8-4.8); LYMPHOCYTES % (AUTO) 6.8 % (20.0-44.0); MEAN CORPUSCULAR HGB CONC 33 g/dl (31.0-36.0); MEAN CORPUSCULAR VOLUME 86 fL (80-96); MONOCYTES # (AUTO) 0.6 /CMM (0.1-1.30); MONOCYTES % (AUTO) 6.9 % (2.0-12.0); NEUTROPHILS # (AUTO) 7.7 /CMM (1.8-8.9); NEUTROPHILS % (AUTO) 83.7 % (43.0-81.0); PLATELET COUNT (AUTO) 209 /CMM (150-450); RED BLOOD CELL COUNT(AUTO) 4.89 MIL/uL (4.5-6.0); WHITE BLOOD COUNT (AUTO) 9.2 K/uL (4.3-11.0)
[2020-11-27 07:20] LABS: CALCIUM, SERUM 8.5 mg/dL (8.5-10.1); MAGNESIUM 1.9 mg/dL (1.8-2.4); PHOSPHORUS 3.7 mg/dL (2.5-4.9); POTASSIUM 4.2 mmol/L (3.5-5.1)
[2020-11-27] MEDS: DEXAMETHASONE SOD PHOSPHATE 10 MG/ML VIAL IV SCH (09:24)
[2020-11-27] MEDS: APIXABAN 5 MG TABLET PO SCH ×2 (09:26→17:01)
[2020-11-27] MEDS: DOCUSATE SODIUM 100 MG CAPSULE PO SCH ×2 (09:26→16:59)
--- NOTE | 2020-11-27 16:00 | NUR ---
RN NOTE Patient titrated down to 10.0L NRB saturating 94%. Will continue with O2 titration.
--- NOTE | 2020-11-27 19:11 | NUR ---
RN CLOSING NOTE Patient is resting in bed, A/O x4, showing no signs of acute distress or SOB, saturating 92% on 6.0L simple face mask. Patient denies any pain or discomfort at this time. All patient needs met, all due medications given, patient kept clean and dry throughout shift. Bed is in lowest position, side rails x2, in upright position, call light is within reach, fall safety and aspiration precautions enforced. Will endorse to night shift supervisor for SETH.
--- NOTE | 2020-11-27 20:12 | NUR ---
SECTION MAINTAINER OPENING NOTES PATIENT IN BED A/O X4; ABLE TO MAKE NEEDS KNOWN. ON O2 AT 6LPM VIA SIMPLE MASK; TOLERATING WELL WITH NO SOB AT THIS TIME. ON EXTERNAL TELE MONITORING; READS SR AND HR AT 84. IV #18 ON RAC; PATENT AND INTACT. PATIENT DENIES PAIN OR DISCOMFORT AT THIS TIME. SAFETY MEASURES IN PLACE: BED IN LOWEST LOCK POSITION, SIDE RAILS UP X2, CALL LIGHT WITHIN REACH. WILL CONTINUE TO MONITOR.
[2020-11-27] MEDS ORDERED: ENOXAPARIN SODIUM 40 MG/0.4 ML DISP.SYRIN SQ ONE (21:43)
[2020-11-27] MEDS: ATORVASTATIN 10 MG TABLET PO SCH (22:05)
--- NOTE | 2020-11-27 23:25 | NUR ---
RAILROAD CRANE OPERATOR NOTES REMOVED LOVENOX 40MG UNDER WRONG PATIENT'S NAME FROM [facility] WITH SAJI RN PYROTECHNIC MIXER. RETURNED MEDICATION TO [facility] D/T ERROR.
[2020-11-28] VITALS (8 sets, daily range): BP systolic 117–134; BP diastolic 63–82
[2020-11-28 06:24] LABS: BASOPHILS % (AUTO) 0.2 % (0.0-2.0); EOSINOPHILS % (AUTO) 1.6 % (0.0-6.0); HEMATOCRIT 43 % (39-51); HEMOGLOBIN 14.5 g/dL (13.5-17.5); LYMPHOCYTES # (AUTO) 0.7 /CMM (0.8-4.8); MEAN CORPUSCULAR HGB CONC 34 g/dl (31.0-36.0); MEAN CORPUSCULAR VOLUME 85 fL (80-96); MONOCYTES # (AUTO) 0.6 /CMM (0.1-1.30); MONOCYTES % (AUTO) 6.3 % (2.0-12.0); NEUTROPHILS # (AUTO) 8.6 /CMM (1.8-8.9); NEUTROPHILS % (AUTO) 84.9 % (43.0-81.0); PLATELET COUNT (AUTO) 210 /CMM (150-450); WHITE BLOOD COUNT (AUTO) 10.1 K/uL (4.3-11.0)
--- NOTE | 2020-11-28 06:30 | NUR ---
SOLUTIONS SPECIALIST CLOSING NOTES PATIENT IN BED A/O X4; ABLE TO MAKE NEEDS KNOWN. TITRATED O2 TO 3LPM VIA NASAL CANNULA; TOLERATING WELL WITH NO SOB AT THIS TIME. ON EXTERNAL TELE MONITORING; READS SR WITH BBB AND HR AT 68. IV #18 ON RAC; PATENT AND INTACT. SAFETY MEASURES IN PLACE: BED IN LOWEST LOCK POSITION, SIDE RAILS UP X2, CALL LIGHT WITHIN REACH. WILL ENDORSE SETH TO ONCOMING MORNING RN.
[2020-11-28] MEDS: PANTOPRAZOLE 40 MG TABLET.DR PO SCH (06:33)
[2020-11-28 06:59] LABS: CALCIUM, SERUM 8.5 mg/dL (8.5-10.1); CREATININE 1.1 mg/dL (0.6-1.3); MAGNESIUM 1.9 mg/dL (1.8-2.4); PHOSPHORUS 3.1 mg/dL (2.5-4.9)
--- NOTE | 2020-11-28 07:20 | NUR ---
MANTEL CRAFTSMAN OPENING NOTES PATIENT IS IN BED, AWAKE AND VERBALLY RESPONSIVE. A/O X4, AUSTRALIAN-SPEAKER, BUT ABLE TO MAKE NEEDS KNOWN. BREATHING EVEN AND UNLABORED, ON O2 AT 3LPM VIA NASAL CANNULA, NO SOB NOTED. ON TELE MONITORING, READING OF SR WITH BBB, HR IN THE MID 60'S. IV LINE ON RAC #18 PATENT AND INTACT. SAFETY MEASURES IN PLACE: BED LOCKED AND ON LOWEST POSITION, SIDE RAILS UP X2, CALL LIGHT WITHIN REACH. WILL CONTINUE TO MONITOR.
[2020-11-28] MEDS: DOCUSATE SODIUM 100 MG CAPSULE PO SCH ×2 (08:17→16:11)
[2020-11-28] MEDS: DEXAMETHASONE SOD PHOSPHATE 10 MG/ML VIAL IV SCH (08:18)
[2020-11-28] MEDS: APIXABAN 5 MG TABLET PO SCH ×2 (08:18→16:11)
[2020-11-28 09:47] LABS: EOSINOPHILS % (MANUAL) 5 % (0-4); LYMPHOCYTES % (MANUAL) 6 % (16-48); MONOCYTES % (MANUAL) 5 % (0-11.0); MYELOCYTES % 1 % (0-0); NEUTROPHILS % (MANUAL) 83 (42-76)
--- NOTE | 2020-11-28 15:20 | NUR ---
RN NOTES PATIENT'S O2 WAS TITRATED DOWN TO 2L VIA NC. NO COMPLAINT OF SOB NOR SHORTNESS OF BREATH AT THIS TIME. O2 SAT RANGES BETWEEN 91-93%. PATIENT ABLE TO AMBULATE TO BATHROOM AND EAT SNACK AT BEDSIDE. WILL CONTINUE TO MONITOR.
--- NOTE | 2020-11-28 17:59 | NUR ---
RN NOTES SPOKE W/ PATIENT'S SON, JACKELIN ([phone]), AND STATED THAT HE WOULD LIKE TO TAKE THE PATIENT HOME BY NOON TOMORROW. INFORMED SON THAT PATIENT IS TO HAVE CXR TOMORROW AND ANOTHER DECADRON DOSE PART OF PLAN OF CARE, BUT STATED THAT HE IS ALREADY STABLE AND CAN BE CARED FOR OUTSIDE OF THE HOSPITAL. WILL INFORM MD NEEDED.
--- NOTE | 2020-11-28 18:58 | NUR ---
AGENCY DEVELOPMENT MANAGER CLOSING NOTES PATIENT IS IN BED RESTING, AWAKE AND VERBALLY RESPONSIVE. A/O X4, GREENLANDIC-SPEAKER, BUT ABLE TO MAKE NEEDS KNOWN. BREATHING EVEN AND UNLABORED, TITRATED O2 AT 2LPM VIA NASAL CANNULA, NO SOB NOTED NOR RESPIRATORY DISTRESS. ON TELE MONITORING, READING OF SR WITH BBB, HR IN THE 70'S. IV LINE ON RAC #18 PATENT AND INTACT. SPOKE W/ DR. MELLO REGARDING SON'S, JACKELIN, CONCERN; PER DR. MELLO, WILL D/C TOMORROW. SAFETY MEASURES MAINTAINED: BED LOCKED AND ON LOWEST POSITION, SIDE RAILS UP X2, CALL LIGHT WITHIN REACH. WILL ENDORSE TO CONSTRUCTION SCHEDULER NURSE FOR SETH.
[2020-11-28] MEDS: ATORVASTATIN 10 MG TABLET PO SCH (22:13)
[2020-11-29 00:20] VITALS: BP 122/70
[2020-11-29 03:52] VITALS: BP 118/77
--- NOTE | 2020-11-29 06:43 | NUR ---
PERSONAL LINES INSURANCE ADVISOR CLOSING NOTES: PATIENT IN BED, ASLEEP. NO S/S OF DISTRESS NOTED. NO COMPLAIN OF PAIN. CALL LIGHT WITHIN REACH. BED IN LOWEST AND LOCKED POSITION. AMBULATORY.
[2020-11-29 07:15] LABS: BASOPHILS % (AUTO) 0.1 % (0.0-2.0); EOSINOPHILS % (AUTO) 0.8 % (0.0-6.0); HEMATOCRIT 42 % (39-51); HEMOGLOBIN 14.4 g/dL (13.5-17.5); LYMPHOCYTES # (AUTO) 0.9 /CMM (0.8-4.8); MEAN CORPUSCULAR HGB CONC 35 g/dl (31.0-36.0); MEAN CORPUSCULAR VOLUME 85 fL (80-96); MONOCYTES # (AUTO) 0.9 /CMM (0.1-1.30); MONOCYTES % (AUTO) 8.8 % (2.0-12.0); NEUTROPHILS # (AUTO) 8.9 /CMM (1.8-8.9); NEUTROPHILS % (AUTO) 82.3 % (43.0-81.0); PLATELET COUNT (AUTO) 220 /CMM (150-450); WHITE BLOOD COUNT (AUTO) 10.8 K/uL (4.3-11.0)
[2020-11-29 07:32] LABS: CALCIUM, SERUM 8.6 mg/dL (8.5-10.1); CREATININE 1.3 mg/dL (0.6-1.3); MAGNESIUM 1.9 mg/dL (1.8-2.4); PHOSPHORUS 3.8 mg/dL (2.5-4.9); POTASSIUM 4.5 mmol/L (3.5-5.1)
[2020-11-29] MEDS: PANTOPRAZOLE 40 MG TABLET.DR PO SCH (07:38)
--- NOTE | 2020-11-29 07:57 | NUR ---
RN Opening note Received patient in bed, AO x 4, able to responds all stimuli, Pt does no c/o pain or distress. Skin is warm to touch keep clean/dry, intact IV site on right AC 18G with SL, respiratory even and unlabored on room air, O2sat 92%. Kept locked bed with elevated HOB for aspiration precaution and ensure airway and lowest bed foe safety. Call light within reach, will continue to monitor.
[2020-11-29 08:00] VITALS: BP 126/82
[2020-11-29 08:43] LABS: LYMPHOCYTES % (MANUAL) 8 % (16-48); MONOCYTES % (MANUAL) 8 % (0-11.0); MYELOCYTES % 5 % (0-0); NEUTROPHILS % (MANUAL) 79 (42-76)
[2020-11-29] MEDS: APIXABAN 5 MG TABLET PO SCH (08:43)
[2020-11-29] MEDS: DOCUSATE SODIUM 100 MG CAPSULE PO SCH (08:44)
[2020-11-29 16:00] VITALS: BP 113/73
--- NOTE | 2020-11-29 17:00 | NUR ---
Patient discharge to home, given discharge instruction to Son and verbally understanding. Patient denies pain or distress and stable condition. Patient accompanied by staff to the private car and left facility.
[2020-11-29 19:55] VITALS: BP 110/68
== END 2020-11-29 17:10 | disposition home or self-care (01) | DRG 177 ==
LOC: ER 17:16 → UNDOADMIN 20:34 → TRANSITION 20:34 → TELE2 11-20 00:49 → MEDSG2 11-29 15:03 → UNDODISIN 11-29 17:10
PROVIDERS: ADMIT Internal Medicine; ATTEND Nurse Practitioner Acute Care
PROC: XW033E5 Introduction of Remdesivir Anti-infective into Peripheral Vein, Percutaneous Approach, New Technology Group 5 (ICD-10-PCS; principal; 2020-11-22)
DX: U07.1 COVID-19 (principal); J12.82 Pneumonia due to coronavirus disease 2019; J96.01 Acute respiratory failure with hypoxia; E44.1 Mild protein-calorie malnutrition; D68.69 Other thrombophilia; E83.39 Other disorders of phosphorus metabolism; E66.9 Obesity, unspecified; D72.819 Decreased white blood cell count, unspecified; D69.59 Other secondary thrombocytopenia; E78.5 Hyperlipidemia, unspecified; I10 Essential (primary) hypertension; Z87.891 Personal history of nicotine dependence; Z68.28 Body mass index [BMI] 28.0-28.9, adult; E88.09 Other disorders of plasma-protein metabolism, not elsewhere classified; R73.9 Hyperglycemia, unspecified; R74.01 Elevation of levels of liver transaminase levels
CPT/HCPCS: 36415; 71045-TC; 80048-TC; 80053-TC; 80061-TC; 80076-TC; 82550-TC; 82728-TC; 83605-TC; 83615-TC; 83735-TC; 83880; 84100-TC; 84484-TC; 85025-TC; 85378-TC; 85610-TC; 85730-TC; 86140-TC; 87040-TC; A4216; G0378; J0456; J1100; J1650; J2405; J7030; J7050; J7060; U0003